=== PATIENT | male | born 1940 | race Caucasian/White ===

== ENCOUNTER 2018-05-13 08:32 | Outpatient (CLI) | payer MEDICARE, BC, SELFPAY ==
[2018-05-13 11:05] LABS: HCT 40.8 % (40.0-50.0); HGB 13.4 g/dL (13.5-17.5); Mean Corp. HGB Concentration 32.8 g/dL (32.0-36.0); Mean Corpuscular Hemoglobin 29.3 pg (27.0-33.0); Mean Corpuscular Volume 89.3 fL (80-95); Mean Platelet Volume 10.2 fL (8.0-11.0); Platelet Count 218 x1000/uL (130-400); RBC 4.57 m/cumm (4.50-6.00); RBC Distribution Width 13.3 % (11.8-14.1); White Blood Cell Count 8.39 k/cumm (4.4-10.8)
[2018-05-13 11:42] LABS: ALT 25 U/L (12-78); AST 24 U/L (15-37); Albumin 3.6 g/dL (3.4-5.0); Alkaline Phosphatase 82 U/L (46-116); Anion Gap 6.4 mmol/L (3-11); BUN 24 mg/dL (7-18); Bilirubin, Total 0.4 mg/dL (0.2-1.0); CO2 29.6 mmol/L (21.0-32.0); CREATININE 1.54 mg/dL (0.70-1.30); Calcium 9.1 mg/dL (8.5-10.1); Chloride 106 mmol/L (98-107); Estimated GFR 43.79 (mL/min/1.73m2); Glucose 93 mg/dL (70-100); Sodium 142 mmol/L (136-145); Total Protein 7.3 g/dL (6.4-8.2)
== END 2018-05-13 08:52 ==
PROVIDERS: PCP Family Medicine
DX: D64.9 Anemia, unspecified (principal); E03.9 Hypothyroidism, unspecified; J44.9 Chronic obstructive pulmonary disease, unspecified; I71.4 Abdominal aortic aneurysm, without rupture; F03.90 Unspecified dementia, unspecified severity, without behavioral disturbance, psychotic disturbance, mood disturbance, and anxiety; H91.90 Unspecified hearing loss, unspecified ear
CPT/HCPCS: 36415; 80053; 85027

== ENCOUNTER 2018-11-15 11:55 | Outpatient (CLI) | payer MEDICARE, BC, SELFPAY ==
[2018-11-15 13:15] LABS: Anion Gap 10.1 mmol/L (3-11); BUN 20 mg/dL (7-18); CO2 25.9 mmol/L (21.0-32.0); Calcium 8.6 mg/dL (8.5-10.1); Chloride 104 mmol/L (98-107); Glucose 92 mg/dL (70-100); Potassium 4.4 mmol/L (3.5-5.1); Sodium 140 mmol/L (136-145)
== END 2018-11-15 12:15 ==
DX: J44.9 Chronic obstructive pulmonary disease, unspecified (principal); N28.9 Disorder of kidney and ureter, unspecified
CPT/HCPCS: 36415; 80048

== ENCOUNTER 2019-05-26 06:19 | Outpatient (CLI) | payer MEDICARE, BC, SELFPAY ==
[2019-05-26 08:47] LABS: Anion Gap 9.3 mmol/L (3-11); BUN 26 mg/dL (7-18); CO2 26.7 mmol/L (21.0-32.0); CREATININE 1.38 mg/dL (0.70-1.30); Calcium 8.5 mg/dL (8.5-10.1); Chloride 105 mmol/L (98-107); Estimated GFR 49.58 (mL/min/1.73m2); Glucose 92 mg/dL (74-106); Potassium 4.4 mmol/L (3.5-5.1); Sodium 141 mmol/L (136-145)
== END 2019-05-26 06:39 ==
DX: I71.4 Abdominal aortic aneurysm, without rupture (principal); J44.9 Chronic obstructive pulmonary disease, unspecified
CPT/HCPCS: 36415; 80048

== ENCOUNTER 2019-06-22 13:18 | Outpatient (CLI) | payer MEDICARE, BC, SELFPAY ==
[2019-06-22 14:33] LABS: BUN 25 mg/dL (7-18); C-Reactive Protein 0.16 mg/dL (0.0-0.3); CREATININE 1.22 mg/dL (0.70-1.30); Calcium 8.2 mg/dL (8.5-10.1); Chloride 106 mmol/L (98-107); Estimated GFR 57.15 (mL/min/1.73m2); Glucose 87 mg/dL (74-106); Potassium 4.5 mmol/L (3.5-5.1); Sodium 140 mmol/L (136-145); Uric Acid 6.1 mg/dL (3.5-7.2)
== END 2019-06-22 13:38 ==
DX: N18.9 Chronic kidney disease, unspecified (principal); M79.676 Pain in unspecified toe(s)
CPT/HCPCS: 36415; 80048; 84550; 86140

== ENCOUNTER 2020-04-20 12:52 | Inpatient (IN) | payer MEDICARE, BC, SELFPAY ==
[2020-04-20] VITALS (28 sets, daily range): BP systolic 125–178; BP diastolic 74–100; PULSE 84–115; RESP 8–19; TEMP 36.8–37.3; O2SAT 88–98
[2020-04-20] MEDS: HYDROmorphone 2 MG/ML VIAL 0.5 MG IVP (13:17)
--- NOTE | 2020-04-20 13:43 | ED.GENADUL_ITS ---
Discharge Plan Disposition Patient Disposition: [facility] INPATIENT Discharge Details Admit Date/Time: 04/20/20 14:44 Admit Provider: Norma Craig Attending Provider: Norma Craig Primary Care Provider: Dayna Chavira ED Provider: Topher Snyder Discharge Data Discharge Date/Time-TO BE ENTERED AT DEPARTURE: 04/20/20 15:43 Medical Decision Making 1345??80-year-old male multiple medical problems fell from tractor to the ground landing on his left hip. He has pain on lateral compression of his pelvis. He is hemodynamically stable. No abdominal tenderness. Patient did not strike his head and has no headache. He has no neck pain. Plan to obtain CT of the chest abdomen pelvis to assess for acute intrathoracic or intra-abdominal surgical process including pelvic fracture. Given age, mechanism of injury and likely distracting injury will obtain CT of the cervical spine to assess for any cervical fracture. Dilaudid 0.5 mg IV for pain. --Patient had some nausea and was given Zofran 4 mg IV. 14:35 --CT the cervical spine interpreted by radiology:IMPRESSION: No acute fracture, traumatic malalignment or suspicious stenosis. Possibly clinically significant neural foramen narrowing right C6-C7. CT of the chest interpreted by radiology:IMPRESSION: 1. No acute disease in the chest. 2. Incidental findings include benign pleural disease and pleural plaque and coronary artery disease. CT of the abdomen pelvis interpreted by radiology:IMPRESSION: 1. Acute minimally displaced left inferior pubic ramus fracture. 2. Nondisplaced acute left pubic body fracture. 3. Diffuse atherosclerosis with small infrarenal abdominal aortic aneurysms. Clinical consultation is recommended with imaging follow-up in the next 1-2 years. 4. Sigmoid colonic diverticulosis. Labs reviewed and creatinine 1.56 with a GFR of 42.9. I will give IV fluid bolus of 500 mL. I spoke with Dr. Gamble who reviewed imaging and notes nonoperative, weightbearing as tolerated with walker and pain control. He also states a left sacral fracture is also noted. I spoke with Dr. Craig, on-call general surgeon who will admit the patient for pain control. HPI General Mode of arrival: ambulatory . Date/Time Provider Initiated Documentation: 04/20/20 12:59 . Limitations to Documentation: no limitations . Information obtained by: patient and EMS . HPI Narrative: 80-year-old male fell from tractor to the ground landing on his left hip. He has had pain in his hip since this fall. This occurred just prior to arrival. He was not able to ambulate. He arrives via EMS. Pain is moderate and worse with any attempted movement. No associated numbness or tingling. No chest pain or abdominal pain. He did not hit his head and denies neck pain. No back pain. Related Data Home Medications Medication Instructions Recorded Confirmed aspirin 1 tab PO DAILY 02/22/14 04/20/20 vitamin B complex 1 tab PO DAILY 02/22/14 04/20/20 nitroglycerin 0.4 mg BUCCAL ONCE tab-cap 05/06/16 04/20/20 losartan 25 mg PO DAILY 10/27/16 04/20/20 carvedilol 3.125 mg tablet 3.125 mg PO BID #60 tab 12/31/17 04/20/20 albuterol sulfate 90 mcg/actuation 2 inh IH Q6H PRN #18 gm 08/04/18 04/20/20 aerosol inhaler magnesium chloride 71.5 mg 71.5 mg PO DAILY 11/15/18 04/20/20 (magnesium chloride) tablet,delayed release isosorbide mononitrate 30 mg 30 mg PO DAILY #90 tab 07/17/19 04/20/20 tablet,extended release 24 hr fluticasone propionate 50 1 spray JOE BID PRN #9.9 g 12/28/19 04/20/20 mcg/actuation nasal spray,suspension losartan 04/20/20 04/20/20 Previous Rx's Medication Instructions Recorded carvedilol 3.125 mg tablet 3.125 mg PO BID #60 tab 12/31/17 albuterol sulfate 90 mcg/actuation 2 inh IH Q6H PRN #18 gm 08/04/18 aerosol inhaler isosorbide mononitrate 30 mg 30 mg PO DAILY #90 tab 07/17/19 tablet,extended release 24 hr fluticasone propionate 50 1 spray JOE BID PRN #9.9 g 12/28/19 mcg/actuation nasal spray,suspension Allergies Allergy/AdvReac Type Severity Reaction Status Date / Time No Known Allergies Allergy Verified 06/22/19 10:55 General Stated Complaint: Orthopedic CORNELIUS: 3 Review of Systems All systems reviewed & are unremarkable except as noted in HPI and below Cardiovascular Cardiovascular: Denies chest pain Musculoskeletal Musculoskeletal: Reports as per HPI [facility] Medical History (Updated 04/20/20 @ 15:06 by Norma Craig MD) Abdominal aortic aneurysm (02/27/13) 3.3 cm 03/01,, 3.4 2013, 3.4 2014, 06/06/15= 3.4cm, 04/23/17 unchanged,, repeat Q6-12 months - refer if approaching repair size (5cm). 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 Foot pain, right lateral side, base of small toe Hearing loss DR. WILSON-03/09/11; MYRINGOTOMY TUBE IN LEFT EAR SEROUS OTITIS Pain of great toe (07/22/17) Raynaud's phenomenon without gangrene (11/14/17) Peripheral arterial evaluation [facility] [place] 10/22/17 - concur Rotator cuff syndrome Senile dementia ST elevation myocardial infarction (STEMI) in recovery phase (04/23/16) Posterio STEMI Two vessel CAD (LAD & LCX) stints X3 [facility] [place] Echo - LVEF = 47%, mild mitral thickening, mild tricuspid regurg: globally similar to 04/23/16 study. Weight loss observed on examination Surgical History Extraction of cataract O.U. STEMI (05/05/16) Family History Mother Stroke Brother Stroke Hypertension Grandmother Stroke Brother Alcohol abuse Asthma Brother Alcohol abuse Social History Smoking/Tobacco Use Status: Former Tobacco Use Smoking risk assessment performed?: Yes Alcohol Intake: never Drug use: Never Substance use type: does not use Do you feel safe in your relationship?: Yes Exam Const General: cooperative and no acute distress HENMT Head: normocephalic and atraumatic Mouth: moist mucous membranes Eyes Conjunctivae: normal conjunctivae Sclera: normal sclerae EOM: EOM intact bilaterally Neck Neck: trachea midline and supple Resp Auscultation: clear to auscultation bilaterally, no rales, no rhonchi and no wheezes Cardio Rate: regular rate and not tachycardic Rhythm: regular rhythm GI Palpation: soft, not firm, no guarding, no masses, not rigid and nontender Back/Spine/Pelvis Back: No back tenderness Cervical Spine: No cervical spinal tenderness and No step off deformity Thoracic/Lumbar Spine: No thoracic spinal tenderness and No lumbar spinal tenderness Pelvis: other (Pain on lateral compression left hip) Skin General skin exam: no rashes or lesions noted Neuro General: patient alert, patient awake, patient oriented x3 and tone normal Extrem General: no edema Other: No femur tenderness, distal left lower extremity sensation and motor intact, 1+ posterior tibial pulse bilateral Psych Appearance: grossly normal Mental Status: mental status grossly normal Speech and Movement: speech and movement normal Course Vital Signs Vital signs: Vital Signs Temperature 36.8 C 04/20/20 12:51 Pulse 99 H 04/20/20 12:51 Respiratory Rate 17 04/20/20 12:51 Blood Pressure 167/84 H 04/20/20 12:51 Pulse Oximetry 93 04/20/20 12:51 Temperature 36.8 C 04/20/20 12:51 Temperature Source Temporal Artery Scan 04/20/20 12:51 Pulse 99 H 04/20/20 12:51 Respiratory Rate 17 04/20/20 12:51 Respiratory Effort Non-Labored 04/20/20 12:58 Blood Pressure 167/84 H 04/20/20 12:51 Blood Pressure Position Sitting 04/20/20 12:51 Pulse Oximetry 93 04/20/20 12:51 Oxygen Delivery Method Room Air 04/20/20 12:51 Oxygen Flow Rate 0 04/20/20 12:51 Pain Level 2 04/20/20 13:00
[2020-04-20 13:44] LABS: Abs Immature Grans 0.16 10^3/uL (0.0-0.06); Absolute Basophil Count 0.05 10^3/uL (0.0-0.2); Absolute Eosinophil Count 0.35 10^3/uL (0.0-0.7); Absolute Lymphocyte Count 2.56 10^3/uL (1.2-3.4); Absolute Monocyte Count 1.18 10^3/uL (0.1-0.8); Absolute Neutrophil Count 7.29 10^3/uL (1.2-6.7); Basophils % 0.4; HGB 14.6 g/dL (13.5-17.5); Immature Grans % 1.4; Lymphocytes % 22.1; MCH 28.9 pg (27.0-33.0); MCHC 32.4 % (32.0-36.0); MCV 89.1 fL (80-95); MPV 11.3 fL (8.0-11.0); Monocytes % 10.2; Neutrophils % 62.9; Nucleated RBC 0 %; Platelet Count 212 10^3/uL (130-400); RBC 5.05 10^6/uL (4.36-5.78); RDW 12.7 % (11.8-14.1); RDW-SD 41.7 fL; WBC 11.59 10^3/uL (4.4-10.8)
--- NOTE | 2020-04-20 13:50 | DI.CT_ITS ---
EXAM: CT CERVICAL SPINE WO CLINICAL HISTORY: TRAUMA, FALL FROM TRACTOR TECHNIQUE: COMPARISON: No exams were available for comparison FINDINGS: CT examination cervical spine was performed utilizing multi slice acquisition and multiplanar reconst ruction. Images obtained through the lung apices show evidence of scarring. There is unremarkable a ppearance of the tracheolaryngeal structures. No cervical mass or adenopathy seen. There are moderate degenerative changes of the cervical spine consistent with the patient's age. The re is no evidence of acute fracture or dislocation. IMPRESSION: No evidence of acute cervical spine injury. RADIATION DOSE DELIVERED: 334.6mGy.cm Total DLP
[2020-04-20] MEDS: Ondansetron 4 MG/2 ML VIAL IVP ×2 (13:58→19:55)
[2020-04-20] MEDS: Normal Saline 500 ML IV (13:58)
[2020-04-20 13:59] LABS: ALT 29 U/L (16-63); AST 33 U/L (15-37); Albumin 3.9 g/dL (3.4-5.0); Alkaline Phosphatase 87 U/L (46-116); Anion Gap 9.1 mmol/L (3-11); BUN 26 mg/dL (7-18); Bilirubin, Total 0.4 mg/dL (0.2-1.0); CO2 26.9 mmol/L (21.0-32.0); CREATININE 1.56 mg/dL (0.70-1.30); Calcium 9.2 mg/dL (8.5-10.1); Chloride 101 mmol/L (98-107); Estimated GFR 42.93 (mL/min/1.73m2); Glucose 112 mg/dL (74-106); Potassium 4.6 mmol/L (3.5-5.1); Sodium 137 mmol/L (136-145); Total Protein 8.3 g/dL (6.4-8.2)
--- NOTE | 2020-04-20 14:00 | DI.CT_ITS ---
EXAM: CT CHEST/ABD/PEL W TECHNIQUE: CT examination of the chest, abdomen, and pelvis was performed with bolus infusion of 100 cc of Omnipaque 350. COMPARISON: CT CTA THORAX/ABDOMEN/PELVIS from 04/23/2016 CT CTA THORAX/ABDOMEN/PELVIS from 04/23/2016 FINDINGS: There is no evidence of a thoracic vascular injury. The lungs are predominantly clear with mild bello ges of pulmonary scarring. There are multiple pleural plaques including calcified plaques, presumed prior asbestos exposure. No pneumothorax or pleural effusion. No mediastinal hematoma. No adenopathy in the chest. Tracheobronchial tree appears intact. The liver, spleen, and pancreas appear normal. Gallbladder and bile ducts are normal. Adrenals and kidneys are unremarkable. No evidence of urinary tract injury or obstruction. No abdominal or pelvic vascular injury seen. There is a an infrarenal abdominal aortic aneurysm measuring up to about 3.7-3.9 cm in diameter. No abdominal or pelvic adenopathy. No significant abdominal wall hernia or hematoma. No evidence of kim l injury. There are fractures of the superior and inferior pubic rami on the left. There is mild displacement at the fracture sites. There is a minimally displaced associated inferior left sacral ala fracture. IMPRESSION: Left superior and inferior pubic ramus fractures and left sacral ala fracture as described above. No other evidence of acute injury. RADIATION DOSE DELIVERED: 840.05mGy.cm Total DLP 840.05mGy.cm Total DLP DATA REPOSITORY: All CT scans at this facility are submitted to the National Radiology Data Registry (NRDR) Dose Index Registry (DIR) with the [employer] (A[employer]). RADIATION OPTIMIZATION: All CT scans at this facility use at least one of these dose optimization te chniques: automated exposure control; mA and/or kV adjustment per patient size (includes targeted exa ms where dose is matched to clinical indication); or iterative reconstruction.
[2020-04-20] MEDS: Omnipaque 350 MG/ML 100 ML BTL IJ (14:01)
[2020-04-20] MEDS: Normal Saline - Diluent 50 ML VIAL IV (14:02)
--- NOTE | 2020-04-20 14:16 | DI.VRAD_ITS ---
PROCEDURE INFORMATION: Exam: CT Chest With Contrast; Diagnostic Exam date and time: 04/20/2020 1:44 PM Age: 80 years old Clinical indication: Other: Left groin pain S/P trauma; Patient HX: Trauma, fall off tractor TECHNIQUE: Imaging protocol: Diagnostic computed tomography of the chest with intravenous contrast. Radiation optimization: All CT scans at this facility use at least one of these dose optimization techniques: automated exposure control; mA and/or kV adjustment per patient size (includes targeted exams where dose is matched to clinical indication); or iterative reconstruction. Contrast material: OMNIPAQUE 350; Contrast volume: 100 ml; Contrast route: INTRAVENOUS (IV); COMPARISON: No relevant prior studies available. FINDINGS: Limitations: None. Tracheobronchial tree: Normal. Lungs: The lungs are normally expanded and clear. Pleural space: Diffuse bilateral mixed benign pleural plaque. Heart: Normal dimensions. No pericardial effusion. Coronary arteries: Multivessel calcification and stents suspected. Aorta: Diffuse aortosclerosis. The aorta has normal caliber. Lymph nodes: No enlarged axillary, mediastinal or hilar lymph nodes. Bones/joints: No acute fracture or suspicious osseous lesion. Soft tissues: Normal. IMPRESSION: 1. No acute disease in the chest. 2. Incidental findings include benign pleural disease and pleural plaque and coronary artery disease. PROCEDURE INFORMATION: Exam: CT Abdomen And Pelvis With Contrast Exam date and time: 04/20/2020 1:44 PM Age: 80 years old Clinical indication: Other: Left groin pain S/P trauma; Patient HX: Trauma, fall off tractor TECHNIQUE: Imaging protocol: Computed tomography of the abdomen and pelvis with intravenous contrast. Radiation optimization: All CT scans at this facility use at least one of these dose optimization techniques: automated exposure control; mA and/or kV adjustment per patient size (includes targeted exams where dose is matched to clinical indication); or iterative reconstruction. Contrast material: OMNIPAQUE 350; Contrast volume: 100 ml; Contrast route: INTRAVENOUS (IV); COMPARISON: No relevant prior studies available. FINDINGS: Limitations: None. Liver: Normal. Gallbladder and bile ducts: Normal. Pancreas: Normal. Spleen: Normal. Adrenal glands: Normal. Kidneys and ureters: Normal. Stomach and bowel: Normal stomach and small bowel. Mild sigmoid colonic diverticulosis, otherwise, normal colon. Appendix: Normal. Intraperitoneal space: No ascites, pneumoperitoneum or peritoneal lesion. Vasculature: Moderate diffuse atherosclerosis. No suspicious stenoses though there is mild diffuse irregular enlargement of the abdominal aorta and aneurysmal enlargement of the distal aorta spanning its terminal 5.2 cm and enlarged up to 3.6 x 3.2 cm. There is moderate left eccentric noncalcified plaque partially filling the aneurysm. From this point to the renal arteries there is near uniform enlargement of the aorta up to 3.2 cm. Lymph nodes: None enlarged or otherwise suspicious. Urinary bladder: Normal. Reproductive: Normal prostate and seminal vesicles. Bones/joints: Acute mildly displaced fracture mid inferior left pubic ramus. Acute nondisplaced fracture at the left pubic body. Soft tissues: No mass or abdominal hernia. IMPRESSION: 1. Acute minimally displaced left inferior pubic ramus fracture. 2. Nondisplaced acute left pubic body fracture. 3. Diffuse atherosclerosis with small infrarenal abdominal aortic aneurysms. Clinical consultation is recommended with imaging follow-up in the next 1-2 years. 4. Sigmoid colonic diverticulosis. Dictated and Authenticated by: Nacho Bateman MD. Ordering:AALIYAH Obando MD
--- NOTE | 2020-04-20 14:20 | DI.VRAD_ITS ---
PROCEDURE INFORMATION: Exam: CT Cervical Spine Without Contrast Exam date and time: 04/20/2020 1:17 PM Age: 80 years old Clinical indication: Neck pain; Patient HX: Trauma, fall off tractor TECHNIQUE: Imaging protocol: Computed tomography images of the cervical spine without contrast. Radiation optimization: All CT scans at this facility use at least one of these dose optimization techniques: automated exposure control; mA and/or kV adjustment per patient size (includes targeted exams where dose is matched to clinical indication); or iterative reconstruction. COMPARISON: No relevant prior studies available. FINDINGS: Bones/joints: No acute fracture. 2 mm posterior degenerative subluxation C2 upon C3 and C5 upon C6. Alignment is otherwise normal. Discs/Spinal canal/Neural foramina: No disc protrusion. Diffuse uncovertebral spurring which is in general mild but greater at C5-C6 and C6-C7 where the disc space is more narrowed and vertebral body spurring is larger. No worrisome central stenosis at any level. Degenerative spurring at right C6-C7 neural foramen may cause clinically significant narrowing. Epidural space: Normal. Prevertebral Space: Normal. Lymph nodes: No enlarged lymph nodes. Lungs: Lung apices are normal. Soft tissues: Unremarkable. Calcification in both carotid bulbs. IMPRESSION: No acute fracture, traumatic malalignment or suspicious stenosis. Possibly clinically significant neural foramen narrowing right C6-C7. Dictated and Authenticated by: Nacho Bateman MD. Ordering:AALIYAH Obando MD
--- NOTE | 2020-04-20 15:03 | W.PM.HP.N ---
Date of service: 04/20/20 Time of Service: 17:00 Assessment and Plan Assessment and plan (1) Fall: Status: Acute (2) Fracture of left inferior pubic ramus: Status: Acute Assessment and plan: The patient will be admitted for pain control and PT. Orthopedics has reviewed the images and deems this a nonoperative fracture, WBAT with walker. Will monitor labs due to mildly elevated cr. History of Present Illness Narrative: This 80 year old man was cleaning off his tractor and fell to the ground on his left hip. He presented to the ER and was found to have a left inferior pubic ramus and pubic body fracture. No other injuries found. He denies LOC or headache. No chest pain or SOB. No abdominal pain. Review of Systems All systems reviewed & are unremarkable except as noted in HPI and below [facility] Medical History (Updated 04/20/20 @ 15:06 by Norma Craig MD) Abdominal aortic aneurysm (02/27/13) 3.3 cm 03/01,, 3.4 2013, 3.4 2014, 06/06/15= 3.4cm, 04/23/17 unchanged,, repeat Q6-12 months - refer if approaching repair size (5cm). 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 Foot pain, right lateral side, base of small toe Hearing loss DR. WILSON-03/09/11; MYRINGOTOMY TUBE IN LEFT EAR SEROUS OTITIS Pain of great toe (07/22/17) Raynaud's phenomenon without gangrene (11/14/17) Peripheral arterial evaluation [facility] [place] 10/22/17 - concur Rotator cuff syndrome Senile dementia ST elevation myocardial infarction (STEMI) in recovery phase (04/23/16) Posterio STEMI Two vessel CAD (LAD & LCX) stints X3 [facility] [place] Echo - LVEF = 47%, mild mitral thickening, mild tricuspid regurg: globally similar to 04/23/16 study. Weight loss observed on examination Surgical History Extraction of cataract O.U. STEMI (05/05/16) Family History Mother Stroke Brother Stroke Hypertension Grandmother Stroke Brother Alcohol abuse Asthma Brother Alcohol abuse Social History Smoking/Tobacco Use Status: Former Tobacco Use Smoking risk assessment performed?: Yes Alcohol Intake: never Drug use: Never Substance use type: does not use Do you feel safe in your relationship?: Yes Meds Home Medications and Allergies Home Medications Medication Instructions Recorded Confirmed Type aspirin 1 tab PO DAILY 02/22/14 04/20/20 History vitamin B complex 1 tab PO DAILY 02/22/14 04/20/20 History nitroglycerin 0.4 mg BUCCAL ONCE tab-cap 05/06/16 04/20/20 History losartan 25 mg PO DAILY 10/27/16 04/20/20 History carvedilol 3.125 mg tablet 3.125 mg PO BID #60 tab 12/31/17 04/20/20 Rx albuterol sulfate 90 mcg/actuation 2 inh IH Q6H PRN #18 gm 08/04/18 04/20/20 Rx aerosol inhaler magnesium chloride 71.5 mg 71.5 mg PO DAILY 11/15/18 04/20/20 History (magnesium chloride) tablet,delayed release isosorbide mononitrate 30 mg 30 mg PO DAILY #90 tab 07/17/19 04/20/20 Rx tablet,extended release 24 hr fluticasone propionate 50 1 spray JOE BID PRN #9.9 g 12/28/19 04/20/20 Rx mcg/actuation nasal spray,suspension losartan 04/20/20 04/20/20 History Allergies Allergy/AdvReac Type Severity Reaction Status Date / Time No Known Allergies Allergy Verified 06/22/19 10:55 Exam Narrative Exam Narrative: Alert PERRLA Lungs CTA Heart RRR Abdomen soft, nontender No bruising in pelvic region Extremities atraumatic Results Labs Result diagrams: 04/20/20 13:20 04/20/20 13:20 Labs: Laboratory Results - last 24 hr 04/20/20 04/20/20 04/20/20 13:20 13:20 13:20 WBC 11.59 H RBC 5.05 Hgb 14.6 Hct 45.0 MCV 89.1 MCH 28.9 MCHC 32.4 RDW 12.7 Plt Count 212 MPV 11.3 H Immature Gran % 1.4 Neutrophils % 62.9 Lymphocytes % 22.1 Monocytes % 10.2 Eosinophils % 3.0 Basophils % 0.4 Nucleated RBC % 0 Absolute Neutrophils 7.29 H Absolute Lymphocytes 2.56 Absolute Monocytes 1.18 H Absolute Eosinophils 0.35 Absolute Basophils 0.05 Sodium 137 Potassium 4.6 Chloride 101 Carbon Dioxide 26.9 Anion Gap 9.1 BUN 26 H Creatinine 1.56 H Estimated GFR/1.73 m2 42.93 Glucose 112 H Calcium 9.2 Total Bilirubin 0.4 AST 33 ALT 29 Alkaline Phosphatase 87 Total Protein 8.3 H Albumin 3.9 Patient ABO/Rh B Positive Antibody Screen Negative Last Vital Signs Temp 98.2 F 04/20/20 12:51 Pulse 99 H 04/20/20 12:51 Resp 17 04/20/20 12:51 BP 167/84 H 04/20/20 12:51 Pulse Ox 93 04/20/20 12:51 COVID-19 Screening Have you, or household traveled for leisure in last 14 days?: No Had IN PERSON contact w/suspected or confirmed C-19 person: No
[2020-04-20] MEDS: HYDROmorphone 2 MG/ML VIAL IVP (16:54)
[2020-04-20] MEDS: Normal Saline Flush 10 ML SYR IVP (16:54)
[2020-04-20] MEDS: Normal Saline 1,000 ML 30 ML IV (16:54)
[2020-04-20] MEDS: Carvedilol 3.125 MG TAB PO (19:47)
[2020-04-20] MEDS: Acetaminophen 325 MG TAB 650 MG PO (19:48)
[2020-04-20] MEDS: Magnesium Chloride 64 MG TABCR PO (21:25)
[2020-04-20] MEDS: Losartan 25 MG TAB PO (21:26)
[2020-04-20] MEDS: Isosorbide Mononitrate 30 MG TABCR PO (21:26)
[2020-04-20] MEDS: Heparin 5,000 UNITS/ML VIAL 5000 UNITS SC (21:28)
[2020-04-21 03:12] VITALS: BP 119/62; PULSE 76; RESP 10; TEMP 37.5; O2SAT 94
[2020-04-21 06:55] LABS: Abs Immature Grans 0.05 10^3/uL (0.0-0.06); Absolute Basophil Count 0.05 10^3/uL (0.0-0.2); Absolute Eosinophil Count 0.52 10^3/uL (0.0-0.7); Absolute Lymphocyte Count 1.65 10^3/uL (1.2-3.4); Absolute Monocyte Count 1.37 10^3/uL (0.1-0.8); Basophils % 0.4; Eosinophils % 4.5; HCT 35.4 % (40.0-50.0); Immature Grans % 0.4; Lymphocytes % 14.3; MCH 29.4 pg (27.0-33.0); MCHC 33.3 % (32.0-36.0); MCV 88.1 fL (80-95); MPV 10.6 fL (8.0-11.0); Monocytes % 11.9; Neutrophils % 68.5; Nucleated RBC 0 %; Platelet Count 170 10^3/uL (130-400); RBC 4.02 10^6/uL (4.36-5.78); RDW-SD 41.9 fL; WBC 11.54 10^3/uL (4.4-10.8)
[2020-04-21 07:03] LABS: Anion Gap 5.4 mmol/L (3-11); BUN 24 mg/dL (7-18); CO2 25.6 mmol/L (21.0-32.0); CREATININE 1.62 mg/dL (0.70-1.30); Calcium 7.8 mg/dL (8.5-10.1); Chloride 103 mmol/L (98-107); Glucose 122 mg/dL (74-106); Sodium 134 mmol/L (136-145)
[2020-04-21 07:26] LABS: HGB 11.8 g/dL (13.5-17.5)
[2020-04-21 07:40] VITALS: BP 110/60; PULSE 79; RESP 16; TEMP 37.6; O2SAT 96
[2020-04-21] MEDS: Carvedilol 3.125 MG TAB PO ×2 (08:03→20:07)
[2020-04-21] MEDS: Aspirin E.C. 81 MG TABEC PO (08:03)
[2020-04-21 09:20] VITALS: O2SAT 99
--- NOTE | 2020-04-21 09:25 | IN_ITS ---
Date of service: 04/21/20 Time of Service: 10:16 PT Notes Visit Reasons: FALL, LEFT PELVIC FRACTURE Physical Therapy Inpatient Initial Evaluation Date: 04/21/2020 Referring Doctor: Norma rCaig MD PT Orders: PT CONSULT: Eval for assistive device. Safety consult for DC. Wilson to see on 04/21/2019 Precautions: Fall. Standard. WBAT on L LE. Patient Profile/Admitting Diagnosis: Wenceslao is an 80-year-old male who presented to the ED on 04/20/2020 due to left hip pain which he sustained from a fall off from a tractor. He is diagnosed with an acute minimally displaced inferior pubic pubic ramus fracture and a non-displaced acute left pubic body fracture which the orthopedic surgeon said is non-operable at this time. CT scan of the cervical spine showed degenerative subluxation of C2 on C3 and C5 on C6 with spurring greater at C5-C6 and C6-C7 with possible neural foraminal narrowing greatest at C6/C7. PMHX: Medical History (Updated 04/20/20 @ 15:06 by Norma Craig MD) Abdominal aortic aneurysm (02/27/13) 3.3 cm 03/01,, 3.4 2013, 3.4 2014, 06/06/15= 3.4cm, 04/23/17 unchanged,, repeat Q6-12 months - refer if approaching repair size (5cm). 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 Foot pain, right lateral side, base of small toe Hearing loss DR. 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 Weight loss observed on examination Surgical History Extraction of cataract O.U. STEMI (05/05/16) Social History/Home Situation: Lives with in a private home with a genesis and a step-up to enter. They purchased the house previously from an order who has made it handicap-accessible. Independent with all aspects of ADLs without the need for an assistive ambulatory device nor adaptive equipment. No falls in the past 12 [address]. Equipment Owned/DME: None Subjective: Able to PT consult. Complains of 6?7/10 pain in the left pelvis and hip with movement and with weight bearing. Denies headache, chest pain, and lightheadedness throughout session. Agreeable to home health PT services and to outpatient PT services as needed. Objective: General Observation: Supine in bed HOB 30 degrees. Oxygen supplementation via NC. IV in the left UE. Mental Status: 4 6 movement and with weight bearing. Pain: None pain with ROM: Right Upper Extremity: Shoulder Flexion WFL. Shoulder abduction WFL. Elbow flexion WFL. Wrist flexion WFL. Opening and closing of hand WFL. Left Upper Extremity: Shoulder Flexion WFL. Shoulder abduction WFL. Elbow flexion WFL. Wrist flexion WFL. Opening and closing of hand WFL. Right Lower Extremity: Hip flexion WFL. Hip abduction WFL. Knee flexion WFL. Ankle dorsiflexion WFL. Ankle plantarflexion WFL. Left Lower Extremity: Hip flexion lacks the last 20 degrees of hip flexion while seated at edge of bed. Hip abduction WFL. Knee flexion WFL. Ankle dorsiflexion WFL. Ankle plantarflexion WFL. Strength: Right Upper Extremity: Shoulder flexors 4/5. Shoulder abductors 4/5. Elbow flexors 5/5. Elbow extensors 5/5. 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 Left Upper Extremity: Shoulder flexors 4/5. Shoulder abductors 4/5. Elbow flexors 5/5. Elbow extensors 5/5. 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 Right Lower Extremity: Hip flexors 4/5. Hip abductors 4/5. Knee flexors 5/5. Knee extensors 5/5. Ankle dorsiflexors 5/5. Ankle plantarflexors 5/5. Left Lower Extremity:Hip flexors 3-/5. Hip abductors 4/5. Knee flexors 4-/5. Knee extensors 3+/5. Ankle dorsiflexors 5/5. Ankle plantarflexors 5/5. Sensation: Intact as to pain and pressure on bilateral lower extremities. Bed Mobility/Transfers: Rolling minimal assist to right side lying only Supine to sit minimal assist with HOB 30 degrees Sit to supine contact-guard assist Sit to stand contact-guard assist Stand to sit contact-guard assist Bed to chair contact-guard assist Gait: Guided patient through level surface ambulation using a front wheeled walker with WBAT on the left LE requiring contact-guard assist for 50 feet with a step to gait pattern with report of 6?7/10 pain in the left hip and pelvis with wheelchair follow by nurse Liao. Denies lightheadedness throughout ambulation activity. Decreased stance time on the left LE. Balance: Static Sitting: Normal Dynamic Sitting: Good Static Standing: Fair Dynamic Standing: Fair Special Tests: Mobility Limitations Standardized Measure [facility] 6 clicks Basic Mobility Inpatient Short Form: Raw Score: 16 CMS Score: 54.16% deficit Informed Consent/Education: Patient instructed in purpose of PT consult and plan of care. Assessment: Wenceslao demonstrates functional mobility decline requiring the use of a front wheeled walker for all mobility ADL performance, pain in the left hip and pelvis limiting activity performance, impairment with balance, decreased activity tolerance, and increased risk for falls due to admitting diagnosis and recent fall. Patient presents with clinical signs and symptoms consistent with current/admitting diagnoses that have resulted to mobility limitations, gait instability, generalized weakness, and impairment of motor control as demonstrated by the following impairment level findings: 1. Decreased strength to left hip major muscle groups 2. Impaired sitting/standing balance and tolerance due to pain 3. Impaired activity tolerance 4. Limitation of joint range of motion in left hip flexion Impairments are contributing to the following functional limitations: 1. Dependent bed mobility skills 2. Increased dependence with transfers 3. Inability to safely ambulate without assistive device and physical assistance 4. Increase completion time for mobility ADL performance 5. Increased fall risk 6. Inability to negotiate steps alone safely Patient is assessed as a 31895 moderate complexity based on the following: History: 80-year-old male with impairment level findings, functional limitations, and past medical history as indicated above Examination: Demonstrable impairment in strength, balance, and mobility level with underlying impairments and functional limitations as documented above Presentation:Evolving Decision Makin moderate complexity Goals: Goals X1 week 1. Supine-Sit independent 2. Sit-Supine independent 3. Sit-Stand independent 4. Stand-Sit independent 5. Bed-Chair independent 6. Chair-Bed independent 7. Independent gait on level surface with use of front wheeled walker for at least 300 feet without report of pain nor dyspnea 8. Good static and dynamic standing balance/tolerance Plan of Care/Treatment Plan: 1-2x/day, 7 days/week x 1 week. Plan of care has been reviewed with the WOOD HANDLER providing the service under Physical Therapy direction. Initiate Physical Therapy intervention for strengthening, bed mobility, transfers, gait, stairs, balance training, use of assistive device. DISCHARGE RECOMMENDATIONS: Home when medically cleared by hospitalist. Will require the use of a front wheeled walker at discharge destination. May benefit from short home health PT services in order to ensure a smooth transition to home and facilitate mobility training with patient and as needed. When appropriate may progress to outpatient PT services in order to regain independent community ambulation without an assistive device. TREATMENT CODE/TIME: 26146 x 30 minutes beginning at 9:25 AM. Thank you for the opportunity to participate in the care of this patient. Ada Rome PT, DPT, CLT [facility] [place], [place]
[2020-04-21 10:10] VITALS: O2SAT 96
--- NOTE | 2020-04-21 11:00 | PHA.REVIEW ---
Pharmacy Admission Review - Admission Clinical Review (Last Reviewed 04/20/20 @ 15:04 by Norma Craig MD) Fracture of left inferior pubic ramus (Acute) Fall (Acute) No Known Allergies Allergy (Verified 06/22/19 10:55) Height 5 ft 4 in Weight 58.967 kg - Renal Dosing Renal Dosing: BUN 24 mg/dL (7-18) H 04/21/20 06:20 Creatinine 1.62 mg/dL (0.70-1.30) H 04/21/20 06:20 Medications needing adjustments: Reviewed (CRCL ~30ML/MIN) - Anticoagulation Anticoagulation: Hgb 11.8 g/dL (13.5-17.5) L D 04/21/20 06:20 Hct 35.4 % (40.0-50.0) L D 04/21/20 06:20 Plt Count 170 10^3/uL (130-400) 04/21/20 06:20 Creatinine 1.62 mg/dL (0.70-1.30) H 04/21/20 06:20 DVT Prohphylaxis: Reviewed Medications: Heparin Therapeutic Anticoagulation: N/A - Relevant Labs Sodium 134 mmol/L (136-145) L 04/21/20 06:20 Potassium 4.0 mmol/L (3.5-5.1) 04/21/20 06:20 Chloride 103 mmol/L (98-107) 04/21/20 06:20 Electrolytes, C-Reactive P, ESR: Reviewed - DM Control DM Control: Glucose 122 mg/dL (74-106) H 04/21/20 06:20 Insulin Dosing: N/A - BP Control BP Control: Blood Pressure 110/60 Blood Pressure 119/62 If elevated: N/A - IV to PO Switch IV Medications: Reviewed (IVF AND pain meds) - Home Meds Home Med List reviewed: Reviewed - Comments Comments/Follow Ups: non operative fracture, weight bearing as tolerated with walker
[2020-04-21] MEDS: Polyethylene Glycol 3350 17 GM PACKET PO (12:57)
--- NOTE | 2020-04-21 14:22 | PDOC.CMIN ---
- If Service Date Differs Date of service: 04/21/20 Time of Service: 14:23 Care Management Initial Assess REASON FOR HOSPITALIZATION:: Fall, left pelvic fracture PAST MEDICAL HISTORY/PAST SURGICAL HISTORY:: Medical History. Abdominal aortic aneurysm (02/27/13). 3.3 cm 03/01,, 3.4 2013, 3.4 2014, 06/06/15= 3.4cm, 04/23/17 unchanged,, repeat Q6-12 months - refer if approaching repair size (5cm). 3.4 [place] [facility]. Advanced directives, counseling/discussion. Anemia, unspecified (06/30/16). Post STEMI 04/2016. BPH without urinary obstruction. Chronic obstructive lung disease (06/10/12). 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 bilat pleural plaque on CT stable. asbestos? Foot pain, right. lateral side, base of small toe. Hearing loss. DR. WILSON-03/09/11; MYRINGOTOMY TUBE IN LEFT EAR. SEROUS OTITIS. Pain of great toe (07/22/17). Raynaud's phenomenon without gangrene (11/14/17). Peripheral arterial evaluation [facility] [place] - concur. Rotator cuff syndrome. Senile dementia. ST elevation myocardial infarction (STEMI) in recovery phase (04/23/16). Posterio STEMI. Two vessel CAD (LAD & LCX) stints X3. [facility] Echo - LVEF = 47%, mild mitral thickening, mild tricuspid regurg: globally similar to 04/23/16 study. Weight loss observed on examination. Surgical History. Extraction of cataract. O.U. STEMI (05/05/16) PREVIOUS FUNCTIONAL STATUS/SOCIAL/FAMILY SUPPORTS:: Wenceslao lives in [facility] with his , Erendira. 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 His , Erendira, is a retired RN. Together they had 3 children and adopted two. His children are all over the [place] currently. He has two grandchildren who he loves to spend time with when he can. He is independent at baseline. CURRENT FUNCTIONAL STATUS:: Wenceslao was sitting up in his chair when met with him. He stated that he was surprised that he isn't in too much pain, although he reported that it was tolerable with only tylenol. CM advocated that he report his pain to the RN, and not try to ignore it, if it gets too uncomfortable to bear. Wenceslao shared stories about working in the [employer], and how valuable it was for both him and the inmates. He reported that he is hoping to return home tomorrow, if possible. Per PT, he can discharge once he is medically stable, and may benefit from HH PT. CM will continue to follow. ADVANCE DIRECTIVES:: Not on file. CM will offer forms. Has patient been provided with info about the portal/API?: No Did the patient sign up for the portal?: No CODE STATUS:: Full Code INSURANCE COVERAGE / FINANCIAL ISSUES:: [facility]/ BCBS CURRENT HOME/COMMUNITY SERVICES/EQUIPMENT:: No current services. He does not have any equipment, but stated that he plans to use a FWW from the [facility]. CM offered a FWW, as it can be included in his hospital stay, and he stated that he would talk to his about it. PRIMARY CARE PHYSICIAN:: Dayna Chavira POTENTIAL DISCHARGE NEEDS:: Evaluations for further needs, referral to HH, follow up appointments. PATIENT/FAMILY EDUCATION NEEDS:: Review discharge instructions regarding activity levels and medications, discussion of self care needs including ask me three and goals of care. ANTICIPATED BARRIERS TO DISCHARGE:: None identified at this time. TRANSPORTATION:: Via private vehicle by his . PLAN:: Anticipate Wenceslao will return home when medically cleared. He may need new orders for PT/OT prior to discharge. His will drive him home via private vehicle. He will follow up with his PCP and discharge plan of care. CM will continue to follow.
[2020-04-21 15:10] VITALS: BP 113/61; PULSE 69; RESP 18; TEMP 37.8; O2SAT 95
--- NOTE | 2020-04-21 16:40 | W.PM.PROGNOT ---
Date of Service Date of service: 04/21/20 Time of Service: 16:40 Assessment and Plan Assessment and plan (1) Fracture of left inferior pubic ramus: Status: Acute Assessment and plan: Continue PT Patient has Colace and Miralax available Will change from Dilaudid to morphine which will hopefully be better tolerated Labs in am Subjective Subjective Interval history since last seen: Main complaint today is upset stomach with IV Dilaudid. Has not had a BM for a few days. Was able to walk with a walker to the bathroom. No other new areas of pain. No chest pain or SOB Exam Narrative Exam Narrative: Alert Heart RRR Abdomen slightly distended but nontender Objective Last Vital Signs Temp 100.0 F H 04/21/20 15:10 Pulse 69 04/21/20 15:10 Resp 18 04/21/20 15:10 BP 113/61 04/21/20 15:10 Pulse Ox 95 04/21/20 15:10 Laboratory Results - last 24 hr 04/21/20 04/21/20 06:20 06:20 WBC 11.54 H RBC 4.02 L Hgb 11.8 L D Hct 35.4 L D MCV 88.1 MCH 29.4 MCHC 33.3 RDW 13.0 Plt Count 170 MPV 10.6 Immature Gran % 0.4 Neutrophils % 68.5 Lymphocytes % 14.3 Monocytes % 11.9 Eosinophils % 4.5 Basophils % 0.4 Nucleated RBC % 0 Absolute Neutrophils 7.90 H Absolute Lymphocytes 1.65 Absolute Monocytes 1.37 H Absolute Eosinophils 0.52 Absolute Basophils 0.05 Sodium 134 L Potassium 4.0 Chloride 103 Carbon Dioxide 25.6 Anion Gap 5.4 BUN 24 H Creatinine 1.62 H Estimated GFR/1.73 m2 41.10 Glucose 122 H Calcium 7.8 L
[2020-04-21] MEDS: Isosorbide Mononitrate 30 MG TABCR PO (21:27)
[2020-04-21] MEDS: Magnesium Chloride 64 MG TABCR PO (21:27)
[2020-04-21] MEDS: Losartan 25 MG TAB PO (21:27)
[2020-04-21 21:57] LABS: COVID-19 RT-PCR UVMMC Result Negative (Negative)
[2020-04-21 23:15] VITALS: BP 92/43; PULSE 89; RESP 16; TEMP 38.8; O2SAT 91
[2020-04-22 02:31] VITALS: BP 106/61; PULSE 81; RESP 16; TEMP 35.8; O2SAT 94
[2020-04-22] MEDS: Normal Saline 1,000 ML 30 ML IV (05:02)
[2020-04-22 06:46] LABS: HCT 33.2 % (40.0-50.0); HGB 10.9 g/dL (13.5-17.5); MCH 29.1 pg (27.0-33.0); MCHC 32.8 % (32.0-36.0); MCV 88.5 fL (80-95); MPV 10.7 fL (8.0-11.0); Platelet Count 141 10^3/uL (130-400); RBC 3.75 10^6/uL (4.36-5.78); RDW 12.9 % (11.8-14.1); RDW-SD 41.7 fL; WBC 9.64 10^3/uL (4.4-10.8)
[2020-04-22 06:57] LABS: Anion Gap 6.2 mmol/L (3-11); BUN 19 mg/dL (7-18); CO2 23.8 mmol/L (21.0-32.0); Chloride 104 mmol/L (98-107); Estimated GFR 44.92 (mL/min/1.73m2); Glucose 107 mg/dL (74-106); Potassium 3.9 mmol/L (3.5-5.1); Sodium 134 mmol/L (136-145)
[2020-04-22 07:25] VITALS: BP 95/60; PULSE 77; RESP 18; TEMP 37.1; O2SAT 92
[2020-04-22] MEDS: Docusate Sodium 100 MG CAP PO (08:16)
[2020-04-22] MEDS: Carvedilol 3.125 MG TAB PO (08:16)
[2020-04-22] MEDS: Aspirin E.C. 81 MG TABEC PO (08:16)
[2020-04-22] MEDS: oxyCODONE 5 MG TAB PO (08:30)
--- NOTE | 2020-04-22 09:11 | PTTR_ITS ---
Date of service: 04/22/20 Time of Service: 09:11 PT Notes Visit Reasons: FALL, LEFT PELVIC FRACTURE Physical Therapy Inpatient Treatment Note Date: 04/22/2020 Precautions: Fall. Standard. WBAT on L LE. Subjective: States that he is able to move a lot better today. Had a bowel movement yesterday and early this morning. Objective: General Observation: Seated on chair. Nurse Makayla capped IV for ambulation activity this morning. Mental Status: Alert and oriented x 4 Pain: 5/10 pain in L hip and pelvis Bed Mobility/Transfers: Rolling independent Supine to sit independent Sit to supine supervision Sit to stand supervision Stand to sit supervision Bed to chair supervision Gait: Guided patient through level surface ambulation using a front wheeled walker with WBAT on the left LE requiring SBA for 200 feet and 150 feet with a step-through gait pattern with report of 5/10 pain in the left hip and pelvis. Denies lightheadedness throughout ambulation activity. Increasing stance time on the left LE. THERA EX: Instruction for standing level exercise performance per exercise flow sheet. Balance: Static Sitting: Normal Dynamic Sitting: Normal Static Standing: Fair Dynamic Standing: Fair Assessment: Wenceslao demonstrates improved pain control, ambulation tolerance, exercise performance. Reported increased discomfort with hip extension exercise while standing on L LE. Movement tranitions still cause significant pain but once in standing or sitting pain subsides quickly. Will benefit from out patient physical therapy services for continued rehab of the L hip and for return to unassisted ambulation. A brand new front-wheeled walker has been assembled and fitted for patient at end of session. DISCHARGE RECOMMENDATIONS: Home when medically cleared by hospitalist. OP PT services for continued rehab of L hip and for progression to unassisted ambula tion. TREATMENT CODE/TIME: 85106 x 25 minutes, 17778 x 16 minutes beginning at 9:11 AM.
--- NOTE | 2020-04-22 09:48 | PGE_ITS ---
Date of Service Date of service: 04/22/20 Time of Service: 09:48 Assessment and Plan Assessment and plan (1) Fracture of left inferior pubic ramus: Status: Acute Assessment and plan: Patient is working with PT. He has increased discomfort with ambulation as to be expected, which he describes is tolerable at this time. (+) BM yesterday and again this morning. Cr is starting to decrease. Continue with PT for today. P// D/C home later today. Subjective Subjective Interval history since last seen: Patient reports that he is feeling pretty good this morning. He is ambulating with PT using a walker. He reports his pain increases with ambulation to 5/10PL. He expresses he is eager to return home and that his is a nurse and he feels very confident that she will be able to help him around the house. Exam Const General: cooperative, healthy appearing and comfortable Orientation: alert and oriented x3 Resp Effort & Inspection: normal respiratory effort, no audible wheezes and no cough Objective Last Vital Signs Temp 37.1 C 04/22/20 07:25 Pulse 77 04/22/20 07:25 Resp 18 04/22/20 07:25 BP 95/60 L 04/22/20 07:25 Pulse Ox 92 04/22/20 07:25 Laboratory Results - last 24 hr 04/20/20 04/22/20 04/22/20 15:15 06:17 06:17 WBC 9.64 RBC 3.75 L Hgb 10.9 L Hct 33.2 L MCV 88.5 MCH 29.1 MCHC 32.8 RDW 12.9 Plt Count 141 MPV 10.7 Sodium 134 L Potassium 3.9 Chloride 104 Carbon Dioxide 23.8 Anion Gap 6.2 BUN 19 H Creatinine 1.50 H Estimated GFR/1.73 m2 44.92 Glucose 107 H Calcium 8.0 L SARS-CoV-2 (PCR) Negative Nasopharyn COVID-19 PCR Not Applicable Ref Test Perform Site Critical access hospital lab
--- NOTE | 2020-04-22 09:54 | W.PM.DS.N ---
Date of service: 04/22/20 Time of Service: 09:54 DS: Diagnosis Discharge Diagnosis (1) Fracture of left inferior pubic ramus: Status: Acute Discharge Plan Disposition Patient Disposition: HOME Condition: Improving Discharge Details Reason For Visit: FALL, LEFT PELVIC FRACTURE Admit Date/Time: 04/20/20 14:44 Admit Provider: Norma Craig Attending Provider: Norma Craig Primary Care Provider: Dayna Chavira Hospital Course Hospital Course: 80 y/o male whom presented to the ER s/p falling while cleaning off his tractor at which time he sustained a left inferior pubic ramus and pubic body fracture. He was admitted as an in patient for pain control and physical therapy. He is WBAT with use of the walker and is independent with ambulation. Pain has been well controlled. His Cr was elevated upon admission, however now appears to be trending back down. Home Meds and New Rx's Prescriptions: New docusate sodium [Colace] 100 mg Capsule 100 mg PO DAILY Qty: 14 RF: 0 oxycodone 5 mg Tablet 5 mg PO Q6H PRN PRNQty: 10 RF: 0 Continued albuterol sulfate 90 mcg/actuation HFA aerosol inhaler 2 inh IH Q6H PRN (Reason: shortness of breath or wheezing) Qty: 18 RF: 4 Slow-Mag 71.5 mg tablet,delayed release (DR/EC) 71.5 mg PO DAILY RF: 0 aspirin 81 MG tablet,delayed release (DR/EC) 1 tab PO DAILY RF: 0 vitamin B complex 1 EACH capsule 1 tab PO DAILY RF: 0 nitroglycerin 0.4 MG tablet, sublingual 0.4 mg Buccal ONCE RF: 0 losartan 25 MG tablet 25 mg PO DAILY RF: 0 carvedilol 3.125 mg tablet 3.125 mg PO BID Qty: 60 RF: 11 isosorbide mononitrate 30 mg tablet extended release 24 hr 30 mg PO DAILY Qty: 90 RF: 4 fluticasone propionate [Flonase Allergy Relief] 50 mcg/actuation spray,suspension 1 spray JOE BID PRN (Reason: nasal congestion) Qty: 9.9 RF: 1 losartan 25 mg tablet RF: 0 Discharge Instructions Instructions: Fall Prevention (DC) Additional Instructions: Walk several times a day using the walker to maintain your strength and activity tolerance. Do not perform any pushing, pulling or lifting of anything >10 pounds. No strenuous bending or twisting. Slowly progress your activity as tolerated. Please schedule an appointment to follow up with your PCP in 1 week. Stand Alone Forms: Nursing Discharge Form Referrals: Dayna Chavira NP [Primary Care Provider] - 05/02/20 2:40 pm Activity:: Activity as Tolerated Equipment/Supplies:: Walker Diet:: Normal Diet Discharge Orders Discharge Orders: Discharge Order (Routine); Ordered 04/22/20 Ordered By: Micaela Stanley DS: Summary Status at Discharge Functional status at discharge: independent ambulation Overall status at discharge: patient is back to baseline Mental Status: mental status grossly normal Speech and Movement: speech and movement normal Mood: congruent mood Affect: normal affect Exam Const General: cooperative, healthy appearing and comfortable Orientation: alert and oriented x3 Resp Effort & Inspection: normal respiratory effort, no audible wheezes and no cough Psych Mental Status: mental status grossly normal Speech and Movement: speech and movement normal Mood: congruent mood Affect: normal affect DS: Data Vitals/I&O Vitals and I&O: Vital Signs Temperature 37.1 C 04/22/20 07:25 Temperature Source Tympanic 04/22/20 07:25 Pulse 77 04/22/20 07:25 Pulse Rhythm Regular 04/22/20 08:20 Respiratory Rate 18 04/22/20 07:25 Respiratory Effort Non-Labored 04/22/20 08:20 Respiratory Depth Normal 04/22/20 08:20 Respiratory Pattern Normal 04/22/20 08:20 Blood Pressure 95/60 L 04/22/20 07:25 Blood Pressure Mean 94 04/20/20 15:30 Blood Pressure Position Sitting 04/20/20 12:51 Pulse Oximetry 92 04/22/20 07:25 Oxygen Delivery Method Room Air 04/22/20 07:25 Oxygen Flow Rate 0 04/22/20 07:25 Pain Level 4 04/22/20 08:30 Intake & Output 04/21/20 04/22/20 04/22/20 18:59 06:59 18:59 Intake Total 850 / 2000 1150 / 2000 Output Total 1450 / 1450 Balance -600 / 550 1150 / 550 Intake: IV 1000 / 1000 Oral 850 / 1000 150 / 1000 Output: Urine 1450 / 1450 Other: Urine Color Pale Urine Appearance Clear Clear Clear Urine Odor None Stool Size Smear Moderate Stool Characteristics Formed Liquid Brown Brown Voiding Methods Urinal Data Completed and Pending Labs on day of discharge: Labs from last 24 hours 04/22/20 04/22/20 04/20/20 06:17 06:17 15:15 WBC 9.64 RBC 3.75 L Hgb 10.9 L Hct 33.2 L MCV 88.5 MCH 29.1 MCHC 32.8 RDW 12.9 Plt Count 141 MPV 10.7 Sodium 134 L Potassium 3.9 Chloride 104 Carbon Dioxide 23.8 Anion Gap 6.2 BUN 19 H Creatinine 1.50 H Estimated GFR/1.73 m2 44.92 Glucose 107 H Calcium 8.0 L SARS-CoV-2 (PCR) Negative Nasopharyn COVID-19 PCR Not Applicable Ref Test Perform Site [facility] Medical History (Updated 04/20/20 @ 15:06 by Norma Craig MD) Abdominal aortic aneurysm (02/27/13) 3.3 cm 03/01,, 3.4 2013, 3.4 2014, 06/06/15= 3.4cm, 04/23/17 unchanged,, repeat Q6-12 months - refer if approaching repair size (5cm). 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 Foot pain, right lateral side, base of small toe Hearing loss DR. WILSON-03/09/11; MYRINGOTOMY TUBE IN LEFT EAR SEROUS OTITIS Pain of great toe (07/22/17) Raynaud's phenomenon without gangrene (11/14/17) [place]ipheral arterial [place] [facility] [place] - concur Rotator cuff syndrome Senile dementia ST elevation myocardial infarction (STEMI) in recovery phase (04/23/16) Posterio STEMI Two vessel CAD (LAD & LCX) stints X3 [facility] [place] - LVEF = 47%, mild mitral thickening, mild tricuspid regurg: globally similar to 04/23/16 study. Weight loss observed on examination Surgical History Extraction of cataract O.U. STEMI (05/05/16) Family History Mother Stroke Brother Stroke Hypertension Grandmother Stroke Brother Alcohol abuse Asthma Brother Alcohol abuse Social History Smoking/Tobacco Use Status: Former Tobacco Use Smoking risk assessment performed?: Yes Alcohol Intake: never Drug use: Never Substance use type: does not use Do you feel safe in your relationship?: Yes
--- NOTE | 2020-04-22 14:22 | CHAPLAIN ---
Wenceslao was dressed in his own clothes and ready to be discharged when I visited. We had a brief conversation.
--- NOTE | 2020-04-22 14:55 | PT.INTREAT ---
Date of service: 04/22/20 Time of Service: 13:50 PT Notes Visit Reasons: FALL, LEFT PELVIC FRACTURE Inpatient Physical Therapy Treatment Note [facility] Date: 04/22/2020 PRECAUTIONS: Fall SUBJECTIVE: Wenceslao states that he feels ready to be discharged to home. OBJECTIVE: PAIN: No c/o pain BED MOBILITY/TRANSFERS Sit-stand: I Stand-sit: I GAIT Assistive Device: FWW Weight bearing: WBAT L Assist: S Distance: 200' Deviation: Increased stance time on R ASSESSMENT: Patient tolerated session without complaint of pain. He demonstrates increased stance time on R LE with gait training for pain management. PLAN: Discharge to home with FWW. TREATMENT CODE/TIME: 10 minutes; [id number]
[2020-04-22 15:20] VITALS: BP 114/63; PULSE 72; RESP 18; TEMP 37.1; O2SAT 92
--- NOTE | 2020-04-22 17:33 | PDOC.CMDIS ---
LACE Index Scoring Tool - Questions: Length of Stay (in days): 2 Acuity (Admit via E.D.?): Yes Comorbidities: Previous M.I., Chronic Pulmonary Disease E.D. Visits: 1 - Answers: Total Score: 9 Risk of Readmission: Low Risk Care Management Discharge Reason for Hospitalization: Fall, left pelvic fracture Discharge Plan: Wenceslao will return home when ready per MD. FWW provided. He will follow up with his PCP and discharge plan of care. He will transport via private vehicle with his , Erendira and their daughter. Patient/Family Education Needs: Review of discharge instructions, discuss Ask Me Three. Services Needed at Discharge: DME Agency ([facility])
--- NOTE | 2020-04-24 10:53 | PT.INDS ---
Date of service: 04/24/20 Time of Service: 10:54 PT Notes Visit Reasons: FALL, LEFT PELVIC FRACTURE Physical Therapy Inpatient Discharge Summary Date: 04/24/2020 Dates of Service: 04/21/2019 through 04/22 2019 This is a clinical summary of care provided on the duration of dates listed above. No charge was made in the completion of this documentation. Referring Doctor: Norma Craig MD PT Orders: PT CONSULT: Eval for assistive device. Safety consult for DC. Wilson to see on 04/21/2019 Precautions: Fall. Standard. WBAT on L LE. Patient Profile/Admitting Diagnosis: Wenceslao is an 80-year-old male who presented to the ED on 04/20/2020 due to left hip pain which he sustained from a fall off from a tractor. He is diagnosed with an acute minimally displaced inferior pubic pubic ramus fracture and a non-displaced acute left pubic body fracture which the orthopedic surgeon said is non-operable at this time. CT scan of the cervical spine showed degenerative subluxation of C2 on C3 and C5 on C6 with spurring greater at C5-C6 and C6-C7 with possible neural foraminal narrowing greatest at C6/C7. PMHX: Medical History (Updated 04/20/20 @ 15:06 by Norma Craig MD) Abdominal aortic aneurysm (02/27/13) 3.3 cm 03/01,, 3.4 2013, 3.4 2014, 06/06/15= 3.4cm, 04/23/17 unchanged,, repeat Q6-12 months - refer if approaching repair size (5cm). 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 Foot pain, right lateral side, base of small toe Hearing loss DR. 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 Weight loss observed on examination Surgical History Extraction of cataract O.U. STEMI (05/05/16) Social History/Home Situation: Lives with in a private home with a genesis and a step-up to enter. They purchased the house previously from an order who has made it handicap-accessible. Independent with all aspects of ADLs without the need for an assistive ambulatory device nor adaptive equipment. No falls in the past [address]. Equipment Owned/DME: None Subjective: NT. See most recent PERCUSSION WELDING MACHINE OPERATOR notes. Objective: General Observation: NT. See most recent PERCUSSION WELDING MACHINE OPERATOR notes. Mental Status: NT. See most recent PERCUSSION WELDING MACHINE OPERATOR notes. Pain: 5/10 pain ROM: Right Upper Extremity: Shoulder Flexion WFL. Shoulder abduction WFL. Elbow flexion WFL. Wrist flexion WFL. Opening and closing of hand WFL. Left Upper Extremity: Shoulder Flexion WFL. Shoulder abduction WFL. Elbow flexion WFL. Wrist flexion WFL. Opening and closing of hand WFL. Right Lower Extremity: Hip flexion WFL. Hip abduction WFL. Knee flexion WFL. Ankle dorsiflexion WFL. Ankle plantarflexion WFL. Left Lower Extremity: Hip flexion lacks the last 20 degrees of hip flexion while seated at edge of bed. Hip abduction WFL. Knee flexion WFL. Ankle dorsiflexion WFL. Ankle plantarflexion WFL. Strength: Right Upper Extremity: Shoulder flexors 4/5. Shoulder abductors 4/5. Elbow flexors 5/5. Elbow extensors 5/5. Sports Activities Foul Judge strong. Left Upper Extremity: Shoulder flexors 4/5. Shoulder abductors 4/5. Elbow flexors 5/5. Elbow extensors 5/5. Sports Activities Foul Judge strong. Right Lower Extremity: Hip flexors 4/5. Hip abductors 4/5. Knee flexors 5/5. Knee extensors 5/5. Ankle dorsiflexors 5/5. Ankle plantarflexors 5/5. Left Lower Extremity:Hip flexors 3-/5. Hip abductors 4/5. Knee flexors 4-/5. Knee extensors 3+/5. Ankle dorsiflexors 5/5. Ankle plantarflexors 5/5. Sensation: Intact as to pain and pressure on bilateral lower extremities. Bed Mobility/Transfers: Rolling independent Supine to sit independent Sit to supine independent Sit to stand independent Stand to sit independent Bed to chair independent Gait: Guided patient through level surface ambulation using a front wheeled walker with WBAT on the left LE requiring contact-guard assist for 50 feet with a step to gait pattern with report of 5/10 pain in the left hip and pelvis with wheelchair follow by nurse Liao. Denies lightheadedness throughout ambulation activity. Decreased stance time on the left LE. Balance: Static Sitting: Normal Dynamic Sitting: Good Static Standing: Fair Dynamic Standing: Fair Assessment: Wenceslao demonstrates increased mobility level during this episode of care with pain control very much improved. Patient continues to present with clinical signs and symptoms consistent with current/admitting diagnoses that have resulted to mobility limitations, gait instability, generalized weakness, and impairment of motor control as demonstrated by the following impairment level findings: 1. Decreased strength to left hip major muscle groups 2. Impaired standing balance and tolerance 3. Impaired activity tolerance 4. Limitation of joint range of motion in left hip flexion Impairments are continuing to contribute to the following functional limitations: 1. Inability to safely ambulate without assistive device and physical assistance 2. Increase completion time for mobility ADL performance 3. Increased fall risk 4. Inability to negotiate steps alone safely Goals: Goals X1 week 1. Supine-Sit independent MET 2. Sit-Supine independent MET 3. Sit-Stand independent MET 4. Stand-Sit independent MET 5. Bed-Chair independent MET 6. Chair-Bed independent MET 7. Independent gait on level surface with use of front wheeled walker for at least 300 feet without report of pain nor dyspnea NOT MET 8. Good static and dynamic standing balance/tolerance NOT MET DISCHARGE RECOMMENDATIONS: Home when medically cleared by hospitalist. Will require the use of a front wheeled walker at discharge destination. May benefit from short home health PT services in order to ensure a smooth transition to home and facilitate mobility training with patient and as needed. When appropriate may progress to outpatient PT services in order to regain independent community ambulation without an assistive device. TREATMENT CODE/TIME: NC. Thank you for the opportunity to participate in the care of this patient. Ada Rome PT, DPT, CLT [facility] [place], [place]
== END 2020-04-22 15:29 | disposition home or self-care (01) | DRG 536 ==
LOC: ER 15:11 → MS 15:44
PROVIDERS: Admitting Provider Surgery; Emergency Provider Student in an Organized Health Care Education/Training Program; Visit Provider Surgery
DX: S32.592A Other specified fracture of left pubis, initial encounter for closed fracture (principal); S32.19XA Other fracture of sacrum, initial encounter for closed fracture; V89.9XXA Person injured in unspecified vehicle accident, initial encounter; I71.4 Abdominal aortic aneurysm, without rupture; D64.9 Anemia, unspecified; N40.0 Benign prostatic hyperplasia without lower urinary tract symptoms; J44.9 Chronic obstructive pulmonary disease, unspecified; H91.90 Unspecified hearing loss, unspecified ear; I25.2 Old myocardial infarction; F03.90 Unspecified dementia, unspecified severity, without behavioral disturbance, psychotic disturbance, mood disturbance, and anxiety
CPT/HCPCS: 36415; 74177; 80048; 80053; 85027; 86850; 86900; 86901; 96361; 96374; 96375; 97110; 97162; 97530; 99222; 99231; 99238; 99284; U0003; 71260; 72125; 85025; 99285; J1644; J2405; J3490